=== PATIENT | male | born 1990 | race Caucasian/White ===

== ENCOUNTER 2021-09-01 17:01 | Emergency (ER) | payer OTHER ==
[2021-09-01 17:11] VITALS: BP 126/90; PULSE 95; TEMP 98.1; BMI 30.7
[2021-09-01] MEDS ORDERED: KETOROLAC TROMETHAMINE 30 MG/1 ML VIAL IVPUSH ONE (17:30)
[2021-09-01 18:41] LABS: BASO % 0.3 % (0-2.0); HEMATOCRIT 46.6 % (35.4-49); HEMOGLOBIN 16.4 GM/dL (11.7-16.9); LYMPH % 18.9 % (8-40); MCH 31.1 pg (25.7-33.7); MCHC 35.2 g/dl (32.0-35.9); MEAN CELL VOLUME 88.2 fl (80-96); MEAN PLT VOLUME 7.1 fl (7.5-11.1); MONO % 6.7 % (3.8-10.2); NEUT % 73.1 % (42.8-82.8); PLATELET COUNT 272 10^3/uL (134-434); RBC 5.29 M/mm3 (4.00-5.60); RDW 14.3 % (11.9-15.9); WHITE BLOOD COUNT 10.7 K/mm3 (4.0-10.0)
[2021-09-01 19:12] LABS: ALBUMIN 4.2 g/dl (3.4-5.0); CALCIUM 9.2 mg/dL (8.5-10.1)
[2021-09-01 19:13] LABS: BLOOD UREA NITROGEN 18.6 mg/dL (7-18)
[2021-09-01 19:17] LABS: BILIRUBIN,TOTAL 0.7 mg/dL (0.2-1); TOT PROT 7.4 g/dl (6.4-8.2)
[2021-09-01] MEDS ORDERED: KETOROLAC TROMETHAMINE 30 MG/1 ML VIAL ONE (20:37)
== END 2021-09-01 20:50 | disposition home or self-care (01) ==
LOC: JER 17:01
PROC: 3E033GC Introduction of Other Therapeutic Substance into Peripheral Vein, Percutaneous Approach (ICD-10-PCS; principal; 2021-09-01)
DX: R07.89 Other chest pain (principal)
CPT/HCPCS: 36415; 71045-TC-FY; 80053; 84484; 85025; 93005; 93010; 99285-25